=== PATIENT | female | born 1960 | race Caucasian/White ===

== ENCOUNTER → 2018-04-06 | Day surgery (SDC) | payer BC ==
[~2018-04-06] MED LIST: Lactated Ringers 1,000 ML IV SCH; Propofol 200 MG/20 ML SDV IV ONE
--- NOTE | 2018-04-06 20:46 | OR ---
DATE OF OPERATION: 04/06/2018 PREOPERATIVE DIAGNOSIS: 1. EPIGASTRIC PAIN. 2. PERSISTENT DIARRHEA. POSTOPERATIVE DIAGNOSIS: 1. EPIGASTRIC PAIN. 2. PERSISTENT DIARRHEA. SURGEON: Shahid Alvarado MD PROCEDURE: 1. ESOPHAGOGASTRODUODENOSCOPY WITH BIOPSY X1, USAMA. 2. FULL-LENGTH COLONOSCOPY WITH BIOPSIES X8. ANESTHESIA: CALL CENTER TRAINER due to GERD. COMPLICATIONS: None. SPECIMEN: 1. Duodenal biopsy x1. 2. Antral USAMA. 3. Random biopsies: From the terminal ileum to rectal vault x8. FINDINGS: 1. Full-length EGD. 2. Small hiatal hernia with GERD. No esophagitis, stricturing, ulceration, or Holcomb's changes. 3. Full-length colonoscopy. 4. Colitis in the distal sigmoid colon and rectal vault. Nonspecific and mild. RECOMMENDATIONS: I will give the patient a short course of steroids until pathology reports are back. INDICATIONS: The patient presented to my office with complaints of persistent diarrhea for almost six weeks with an ill-defined etiology. Prior labs, stool studies, and CT of the abdomen and pelvis were all negative. We elected to proceed with endoscopy, and she is having some epigastric pain and GERD, so we elected to do both upper and lower scopes. DESCRIPTION OF PROCEDURE: The patient was prepped and draped, placed in the left lateral decubitus position. A lubricated Olympus gastroscope was inserted over a bit and advanced to the cricopharyngeus area and easily intubated in the esophagus. Esophageal lining was benign in its entire course. The Z-line was crisp and sharp around 35 cm. There was a mild hiatal hernia present with spontaneous GERD, but no distal esophagitis, stricturing, ulceration, or Holcomb's changes. The scope was advanced into the stomach through the pylorus and into the second portion of the duodenum. This and the duodenal bulb were completely benign. Biopsy of the duodenum was accomplished for malabsorption reasons. The scope was brought back into the stomach and retroflexed. The upper fundus and cardia were completely unremarkable other than the small hernia visualized from below. Upon straightening, the rest of the fundus and antrum were completely benign. No peptic ulcer disease, signs of polyps, mass, or otherwise. CLOtest was obtained of the antrum. Air was then suctioned from the stomach and the scope was removed without complication. A lubricated Olympus colonoscope was then inserted and easily advanced to the cecum. Direct visualization of the ileocecal valve and appendiceal orifice was accomplished. We were able to intubate into the terminal ileum. No gross abnormalities were seen. Biopsy was taken. Throughout the length of the colon, I could find no signs of any polyps, mass, ulceration, or bleeding sites. No vascular abnormalities. This patient does have colitis of the rectosigmoid junction and into the proximal rectal vault. We did do biopsies of those inbound call center representative areas x3 and a total of eight biopsies and random ones including the ascending colon, hepatic and splenic flexure, and sigmoid without any gross visual abnormalities of those spots. Retroflexion of the scope in the rectum showed no anal lesions. Air was suctioned and the scope was removed without complication. KENDRA/LESLIE /[id number]
== END ==
LOC: CC.SDS 12:41
PROVIDERS: ATTEND Family Medicine
DX: K52.831 Collagenous colitis (principal); R10.13 Epigastric pain; K44.9 Diaphragmatic hernia without obstruction or gangrene; K21.9 Gastro-esophageal reflux disease without esophagitis; Z88.2 Allergy status to sulfonamides; Z88.5 Allergy status to narcotic agent; Z88.6 Allergy status to analgesic agent; Z79.899 Other long term (current) drug therapy
CPT/HCPCS: 87081; J2704; J7120